=== PATIENT | female | born 1985 | race Caucasian/White ===

== ENCOUNTER 2022-11-24 20:42 | Emergency (ER) | payer OTHER ==
[2022-11-24 20:57] VITALS: RESP 16; TEMP 99; BMI 29.9
[2022-11-24] MEDS ORDERED: SODIUM CHLORIDE 1,000 ML IV STA (21:12)
[2022-11-24] MEDS ORDERED: MAG HYDROX/AL HYDROX/SIMETH 30 ML UNIT-DOSE CUP PO ONE (21:13)
[2022-11-24] MEDS ORDERED: FAMOTIDINE 20 MG/50 ML IVPB 20 MG/50 ML MG IVPB ONE ×2 (21:13→21:32)
[2022-11-24] MEDS ORDERED: MAG HYDROX/AL HYDROX/SIMETH 30 ML UNIT-DOSE CUP ONE (21:32)
[2022-11-24 21:37] LABS: HEMATOCRIT 43.8 % (32.4-45.2); HEMOGLOBIN 14.2 G/dL (10.7-15.3); MCH 28.2 pg (25.7-33.7); MCHC 32.4 g/dl (32.0-36.0); MEAN CELL VOLUME 87.2 fl (80-96); MEAN PLT VOLUME 8.9 fl (7.5-11.1); PLATELET COUNT 251.3 10^3/uL (134-434); RBC 5.02 10^6/uL (3.60-5.2); RDW 15.3 % (11.6-15.6); WHITE BLOOD COUNT 13.4 10^3/uL (4.0-10.8)
[2022-11-24 21:47] LABS: EPITHELIAL CELLS FEW /hpf
[2022-11-24 21:49] LABS: ALBUMIN 4.3 g/dl (3.4-5.0); CREATININE 0.7 mg/dl (0.6-1.3); MAGNESIUM 1.9 mg/dL (1.8-2.4); POTASSIUM 3.9 mmol/L (3.5-5.1); SGOT/AST 13.1 U/L (15-37); SGPT/ALT 19.8 U/L (7-52); TOT PROT 6.6 g/dl (6.4-8.2)
[2022-11-24 22:01] LABS: PLATELET ESTIMATE ADEQUATE
[2022-11-24 22:23] LABS: BILIRUBIN,TOTAL 0.2 mg/dL (0.2-1)
[2022-11-24 22:58] VITALS: BP 111/75; PULSE 67
== END 2022-11-24 22:58 | disposition home or self-care (01) ==
LOC: FER 20:42
PROC: 3E033GC Introduction of Other Therapeutic Substance into Peripheral Vein, Percutaneous Approach (ICD-10-PCS; principal; 2022-11-24)
PROC: 3E0337Z Introduction of Electrolytic and Water Balance Substance into Peripheral Vein, Percutaneous Approach (ICD-10-PCS; 2022-11-24)
DX: R19.7 Diarrhea, unspecified (principal); R10.9 Unspecified abdominal pain
CPT/HCPCS: 36415; 80053; 81003; 81015; 81025; 83690; 83735; 84703; 85027; 87086; 99284-25